=== PATIENT | female | born 1995 | race Caucasian/White ===

== ENCOUNTER 2019-07-31 11:05 | Emergency (ER) | payer OTHER ==
[2019-07-31 11:17] VITALS: BMI 20.2
--- NOTE | 2019-07-31 12:11 | PDOC ---
History of Present Illness - General Chief Complaint: Psychiatric Stated Complaint: Psychiatric Time Seen by Provider: 07/31/19 11:48 History Source: Patient Exam Limitations: Clinical Condition - History of Present Illness Initial Comments: 07/31/19 12:08 Patient with past medical history of depression not on meds or admitted for depression presented with complaint of 2-day history of excessive crying, feeling down and anxiety due to breaking up with her boyfriend. Patient report has been feeling really sad for the past 2 days due to the break-up. Denies suicidal or homicidal ideation. Denies any other symptoms Is this a multiple visit Asthma Patient?: No Timing/Duration: other (2 days) Past History - Past Medical History Allergies/Adverse Reactions: Allergies Allergy/AdvReac Type Severity Reaction Status Date / Time No Known Allergies Allergy Verified 07/31/19 11:09 Home Medications: Ambulatory Orders NK [No Known Home Medication] 07/31/19 COPD: No Psychiatric Problems: Yes (depression, anxiety) - Psycho Social/Smoking Cessation Hx Smoking History: Current every day smoker Have you smoked in the past 12 months: Yes Number of Cigarettes Smoked Daily: 0 Information on smoking cessation initiated: Yes Hx Alcohol Use: Yes Drug/Substance Use Hx: No Review of Systems - Review of Systems Able to Perform ROS?: Yes Is the patient limited Hebrew proficient: No Constitutional: No: Chills, Fever, Malaise HEENTM: No: Symptoms Reported, See HPI, Eye Pain, Blurred Vision, Tearing, Recent change in vision, Double Vision, Cataracts, Ear Pain, Ocular Prothesis, Ear Discharge, Nose Pain, Nose Congestion, Tinnitus, Nose Bleeding, Hearing Loss , Throat Pain, Throat Swelling, Mouth Pain, Dental Problems, Difficulty Swallowing, Mouth Swelling, Other Respiratory: No: Symptoms reported, See HPI, Cough, Orthopnea, Shortness of Breath, SOB with Exertion, SOB at Rest, Stridor, Wheezing, Productive cough, Hemoptysis, Other Cardiac (ROS): No: Symptoms Reported, See HPI, Chest Pain, Edema, Irregular Heart Rate, Lightheadedness, Palpitations, Syncope, Chest Tightness, Other ABD/GI: No: Symptoms Reported, Nausea, Vomiting Integumentary: No: Change in Hair/Nails Neurological: No: Symptoms reported Psychiatric: Yes: Anxiety, Depression, Frequent Crying, Stressors (breakup with boyfriend). No: Sleep Pattern Change, Mood Swings All Other Systems: Reviewed and Negative *Physical Exam - Vital Signs Last Vital Signs Temp Pulse Resp BP Pulse Ox 98.7 F 100 H 18 134/88 100 07/31/19 11:10 07/31/19 11:10 07/31/19 11:10 07/31/19 11:10 07/31/19 11:10 - Physical Exam General Appearance: Yes: Nourished, Appropriately Dressed. No: Apparent Distress HEENT: positive: Normal ENT Inspection Neck: positive: Supple Respiratory/Chest: positive: Lungs Clear, Normal Breath Sounds. negative: Respiratory Distress, Accessory Muscle Use Cardiovascular: positive: Regular Rhythm, Regular Rate Musculoskeletal: positive: Normal Inspection Extremity: positive: Normal Inspection Integumentary: positive: Normal Color Neurologic: positive: Fully Oriented, Alert, Normal Mood/Affect, Normal Response Medical Decision Making - Medical Decision Making 07/31/19 12:08 Patient with past medical history of depression not on meds or admitted for depression presented with complaint of 2-day history of excessive crying, feeling down and anxiety due to breaking up with her boyfriend. Patient report has been feeling really sad for the past 2 days due to the break-up. Denies suicidal or homicidal ideation. Denies any other symptoms Exam significant for patient crying while being told to in no acute distress otherwise normal exam. dump worker consulted to talk to patient about patient's symptoms and patient will be referred to psychologist for follow-up after talking to social worker health services 07/31/19 12:37 dump worker spoke to patient and made a follow-up appointment with psychologist which patient agrees to follow-up. Patient clinically and mentally stable for discharge Discharge - Discharge Information Problems reviewed: Yes Clinical Impression/Diagnosis: Anxiety as acute reaction to exceptional stress Depressed Qualifiers: Depression Type: reactive depression Qualified Code(s): F32.9 - Major depressive disorder, single episode, unspecified Condition: Stable Disposition: HOME - Admission No - Follow up/Referral - Patient Discharge Instructions Patient Printed Discharge Instructions: DI for Anxiety -- Adult, Yoga May Help Reduce Anxiety and Stress Additional Instructions: Follow-up referred to psychologist Dr Hurtado as scheduled. - Post Discharge Activity
--- NOTE | 2019-07-31 12:40 | PDOC ---
*Physical Exam - Vital Signs Last Vital Signs Temp Pulse Resp BP Pulse Ox 98.7 F 100 H 18 134/88 100 07/31/19 11:10 07/31/19 11:10 07/31/19 11:10 07/31/19 11:10 07/31/19 11:10 Medical Decision Making - Medical Decision Making 07/31/19 12:32 Ms. Santos is a 24 yoF h/o depression presents to the ER today due to sadness. Pt has a history of depression One prior psychiatric admission (for depression, left voluntarily after 4 days, did not want to start medications) Pt reports a 2-day history of excessive crying, feeling down and anxiety due to breaking up with her boyfriend. Denies suicidal or homicidal ideation. Denies auditory or visual Pt seen by Midlevel Provider under my direct supervision Pt interviewed and examined Patient examination is normal Patient interactive with examiner Ancillary studies unnecessary Patient seen by social work I agree with plan as outlined by Midlevel Provider Will discharge to home Pt contracts for safety Will see Dr. Hurtado for therpay on 06/04 at 4 pm 07/31/19 12:42 Discharge - Discharge Information Problems reviewed: Yes Clinical Impression/Diagnosis: Anxiety as acute reaction to exceptional stress Depressed Qualifiers: Depression Type: reactive depression Qualified Code(s): F32.9 - Major depressive disorder, single episode, unspecified Condition: Stable Disposition: HOME - Admission No - Follow up/Referral - Patient Discharge Instructions Patient Printed Discharge Instructions: DI for Anxiety -- Adult, Yoga May Help Reduce Anxiety and Stress Additional Instructions: Follow-up referred to psychologist Dr Hurtado as scheduled. - Post Discharge Activity
[2019-07-31 13:22] VITALS: BP 104/60; PULSE 80; TEMP 98
== END 2019-07-31 13:05 | disposition home or self-care (01) ==
LOC: JER 11:05
DX: F43.8 Other reactions to severe stress (principal); F41.1 Generalized anxiety disorder; F32.9 Major depressive disorder, single episode, unspecified
CPT/HCPCS: 99282-25